=== PATIENT | male | born 1960 | race Caucasian/White ===

== ENCOUNTER 2022-11-25 17:47 | Emergency (ER) | payer OTHER ==
[2022-11-25 17:51] VITALS: BP 163/88; PULSE 62; RESP 18; TEMP 98.7; BMI 30.1
[2022-11-25 19:15] LABS: BASO % 0.7 % (0-2.0); EOS % 3.5 % (0-4.5); HEMATOCRIT 48.7 % (35.4-49); HEMOGLOBIN 16.4 GM/dL (11.7-16.9); LYMPH % 36.4 % (8-40); MCHC 33.8 g/dl (32.0-35.9); MONO % 11.8 % (3.8-10.2); NEUT % 47.6 % (42.8-82.8); PLATELET COUNT 324 10^3/uL (134-434); RBC 5.66 M/mm3 (4.00-5.60); WHITE BLOOD COUNT 8.4 K/mm3 (4.0-10.0)
[2022-11-25 19:25] LABS: POTASSIUM 4.5 mmol/L (3.5-5.1)
[2022-11-25 19:27] LABS: ALBUMIN 3.8 g/dl (3.4-5.0); CALCIUM 9.1 mg/dL (8.5-10.1)
[2022-11-25 19:28] LABS: BLOOD UREA NITROGEN 11.4 mg/dL (7-18); MAGNESIUM 2.4 mg/dL (1.8-2.4)
[2022-11-25 19:30] LABS: CREATININE 0.9 mg/dL (0.55-1.3)
[2022-11-25 19:31] LABS: PHOSPHOROUS 3.5 mg/dL (2.5-4.9)
[2022-11-25 19:32] LABS: BILIRUBIN,TOTAL 0.5 mg/dL (0.2-1); TOT PROT 7.5 g/dl (6.4-8.2)
[2022-11-25] MEDS ORDERED: MECLIZINE HCL 25 MG TABLET (FP) PO ONE (19:34)
[2022-11-25] MEDS ORDERED: ASPIRIN 81 MG CHEWABLE TABLETS PO ONE (19:34)
[2022-11-25] MEDS ORDERED: ASPIRIN 81 MG CHEWABLE TABLETS ONE (19:35)
[2022-11-25] MEDS ORDERED: MECLIZINE HCL 25 MG TABLET (FP) ONE (19:35)
== END 2022-11-25 21:34 | disposition home or self-care (01) ==
LOC: JER 17:47
DX: R07.9 Chest pain, unspecified (principal); R42 Dizziness and giddiness
CPT/HCPCS: 36415; 70450-TC; 71045-TC-FY; 80053; 83735; 84100; 84484; 85025; 93005; 93010; 99285-25